=== PATIENT | male | born 1965 | race Caucasian/White ===

== ENCOUNTER 2016-10-17 18:59 | Emergency (ER) | payer BC, OTHER ==
[2016-10-17] MEDS ORDERED: Albuterol/Ipratropium 3.0-0.5 MG/3 ML Neb Soln NEB ONE (19:24)
[2016-10-17] MEDS ORDERED: Sodium Chloride 0.9% 1,000 ML IV ONE (19:24)
[2016-10-17] MEDS ORDERED: methylPREDNISolone Sodium Succinate 125 MG/2 ML SDV IVPUSH ONE (19:24)
--- NOTE | 2016-10-17 20:08 | EDM.PDOC ---
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 Past medical history: As per history of present illness and as reviewed below otherwise noncontributory. Surgical history: As per history of present illness and as reviewed below otherwise noncontributory. Social history: No reported history of drug or alcohol abuse. Family history: As per history of present illness and as reviewed below otherwise noncontributory. Physical exam: HEENT: Atraumatic, normocephalic, pupils reactive, negative for conjunctival pallor or scleral icterus, mucous membranes moist, throat clear, neck supple, nontender, trachea midline. Lungs: And inspiratory wheeze with diminished sounds in the bases otherwise equal bilaterally, chest nontender. Heart: S1S2, regular, negative for clicks, rubs, or JVD. Abdomen: Soft, nondistended, nontender. Negative for masses or hepatosplenomegaly. Negative for costovertebral tenderness. Pelvis: Stable nontender. Genitourinary: Deferred. Rectal: Deferred. Extremities: Atraumatic, negative for cords or calf pain. Neurovascular unremarkable. Neuro: Awake, alert, oriented. Cranial nerves II through XII unremarkable. Cerebellum unremarkable. Motor and sensory unremarkable throughout. Exam nonfocal. Diagnostics: [Chest Xray] Therapeutics: [DuraNeb, IV fluids, Solu-Medrol] Impression: [Reactive airway] Plan: [Followup outpatient] Definitive disposition and diagnosis as appropriate pending reevaluation and review of above. chest Pain Score (Numeric/FACES): 5 - Related Data Allergies Allergy/AdvReac Type Severity Reaction Status Date / Time No Known Allergies Allergy Verified 10/17/16 19:05 Home Meds: Home Meds . [No Known Home Meds] 10/17/16 [History] Past Medical History - Past Health History Medical/Surgical History: Denies Medical/Surgical History Social & Family History - Family History Family Medical History: Noncontributory - Tobacco Use Smoking Status *Q: Never Smoker - Caffeine Use Caffeine Use: Reports: None - Recreational Drug Use Recreational Drug Use: No ED ROS GENERAL - Review of Systems Review Of Systems: See Below (See history of present illness) ED EXAM, GENERAL - Physical Exam Exam: See Below (The history of present illness) Course - Vital Signs Last Recorded V/S: Last Vital Signs Temp 37.5 C 10/17/16 19:11 Pulse 101 H 10/17/16 19:11 Resp 20 10/17/16 19:11 BP 173/126 H 10/17/16 19:11 Pulse Ox 96 10/17/16 19:11 - Orders/Labs/Meds Orders: Active Orders 24 hr Category Date Time Status EKG 12 Lead [EKG Documentation Completion] [RC] STAT Care 10/17/16 19:59 Active RT Aerosol Therapy [RC] ASDIRECTED Care 10/17/16 19:25 Active CXR [Chest 2V] [CR] Stat Exams 10/17/16 19:25 Taken CBC WITH AUTO DIFF [HEME] Stat Lab 10/17/16 20:43 Received CMP [COMPREHENSIVE METABOLIC PN,CMP] [CHEM] Stat Lab 10/17/16 20:43 Received Meds: Medications Discontinued Medications Generic Name Dose Route Start Last Admin Trade Name Steffanie PRN Reason Stop Dose Admin Albuterol/Ipratropium 3 ml 10/17/16 19:24 10/17/16 19:33 Duoneb 3.0-0.5 Mg/3 Ml NEB 10/17/16 19:25 3 ml ONETIME ONE Administration Sodium Chloride 1,000 mls @ 999 mls/hr 10/17/16 19:24 10/17/16 19:33 Normal Saline IV 10/17/16 20:24 999 mls/hr STAT ONE Administration Methylprednisolone Sodium Succinate 125 mg 10/17/16 19:24 10/17/16 19:33 Solu-Medrol IVPUSH 10/17/16 19:25 125 mg ONETIME ONE Administration Departure - Departure Time of Disposition: 20:58 Disposition: Home, Self-Care 01 Condition: good Clinical Impression: Reactive airway disease - Discharge Information Forms: ED Department Discharge Additional Instructions: The following information is given to patients seen in the emergency department who are being discharged to home. This information is to outline your options for follow-up care. We provide all patients seen in our emergency department with a follow-up referral. The need for follow-up, as well as the timing and circumstances, are variable depending upon the specifics of your emergency department visit. If you don't have a primary care physician on staff, we will provide you with a referral. We always advise you to contact your personal physician following an emergency department visit to inform them of the circumstance of the visit and for follow-up with them and/or the need for any referrals to a consulting specialist. The emergency department will also refer you to a specialist when appropriate. This referral assures that you have the opportunity for follow-up care with a specialist. All of these measure are taken in an effort to provide you with optimal care, which includes your follow-up. Under all circumstances we always encourage you to contact your private physician who remains a resource for coordinating your care. When calling for follow-up care, please make the office aware that this follow-up is from your recent emergency room visit. If for any reason you are refused follow-up, please contact the [facility] Emergency Department at and asked to speak to the emergency department charge nurse. As discussed it's important for you to followup with primary care provider one to 2 days It would benefit you if you had your breathing status evaluated Followup in ER as needed as discussed - My Orders Last 24 Hours: My Active Orders 10/17/16 19:25 RT Aerosol Therapy [RC] ASDIRECTED CXR [Chest 2V] [CR] Stat 10/17/16 19:59 EKG 12 Lead [EKG Documentation Completion] [RC] STAT 10/17/16 20:43 CBC WITH AUTO DIFF [HEME] Stat CMP [COMPREHENSIVE METABOLIC PN,CMP] [CHEM] Stat - Assessment/Plan Last 24 Hours: My Active Orders 10/17/16 19:25 RT Aerosol Therapy [RC] ASDIRECTED CXR [Chest 2V] [CR] Stat 10/17/16 19:59 EKG 12 Lead [EKG Documentation Completion] [RC] STAT 10/17/16 20:43 CBC WITH AUTO DIFF [HEME] Stat CMP [COMPREHENSIVE METABOLIC PN,CMP] [CHEM] Stat
[2016-10-17 21:15] LABS: CHLORIDE,CL 108 mmol/L (98-110); SODIUM,NA 141 mmol/L (136-146)
[2016-10-17 21:19] VITALS: BP 166/104
--- NOTE | 2016-10-18 11:06 | CR ---
EXAM DATE: 10/17/16 PATIENT'S AGE: 51 Patient: CALLIE MAHAN Facility: [place], [place] Site . Site : [id number] Study: XRay Chest [id number]/1/[id number] 8:07:25 PM Ordering Physician: Doctor Rivera Final Report: INDICATIONS: Shortness of breath. TECHNIQUE: Chest 3 view. COMPARISON: None FINDINGS: No pneumothorax or pleural effusion. Lungs are clear. Cardiac and mediastinal contours are within normal limits. Upper abdomen and osseous structures show no acute abnormality. IMPRESSION: No evidence of acute cardiopulmonary disease. Dictated by Juan Nolen MD @ 10/17/2016 8:13:37 PM Dictated by: Juan Nolen MD @ 10/17/2016 20:13:44 (Electronic Signature) Report Signed by Proxy. [facility]
== END 2016-10-17 21:05 | disposition home or self-care (01) ==
LOC: MW.ED 18:59
DX: J45.909 Unspecified asthma, uncomplicated (principal)
CPT/HCPCS: 36415; 71020; 80053; 85025; 93005; 94664; 96361; 96374; 99285; J2930; J7040; 99284

== ENCOUNTER 2023-05-28 10:10 | Emergency (ER) | payer BC ==
[2023-05-28 10:40] VITALS: BP 195/122; PULSE 57
== END 2023-05-28 11:13 | disposition left against medical advice (07) ==
LOC: MW.ED 10:10
DX: I16.1 Hypertensive emergency (principal); I10 Essential (primary) hypertension; Z53.29 Procedure and treatment not carried out because of patient's decision for other reasons; Z91.148 Patient's other noncompliance with medication regimen for other reason
CPT/HCPCS: 93005; 99283